=== PATIENT | male | born 1980 | race Caucasian/White ===

== ENCOUNTER 2018-08-05 19:59 | Inpatient (IN) | payer SELFPAY ==
[~2018-08-05] VITALS: Ht 177.8 cm; Wt 74.8 kg
[2018-08-05] MEDS ORDERED: PREDNISONE5 MG (20:07)
[2018-08-05] MEDS ORDERED: ZOFRAN4 MG (20:07)
[2018-08-05] MEDS ORDERED: TYLENOL W/CODEI1 TAB (20:08)
[2018-08-05 20:35] LABS: BASOPHILS 0 % (0-2); EOSINOPHILS 2.3 % (0-7); HEMATOCRIT 33.1 % (42.0-54.0); HEMOGLOBIN 11.1 g/dL (13.5-17.5); IMMATURE GRANULOCYTES 0.5 % (0-5); LYMPHOCYTES 24.5 % (15-50); MCH 26.4 pg (26.0-34.0); MCHC 33.5 g/dL (31.0-37.0); MCV 78.8 fL (80.0-100.0); MEAN PLATELET VOLUME 9.1 fL (7.4-10.4); MONOCYTES 6.8 % (2-11); NEUTROPHILS 65.9 % (40-80); PLATELET COUNT 270 10x3/uL (130-400); RDW 20.4 % (11.5-14.5); WBC 5.6 10x3/uL (4.8-10.8)
[2018-08-05 20:46] LABS: APPEARANCE CLEAR (CLEAR); BILIRUBIN NEGATIVE (NEGATIVE); COLOR YELLOW (YELLOW); GLUCOSE NEGATIVE (NEGATIVE); KETONE NEGATIVE (NEGATIVE); NITRITE NEGATIVE (NEGATIVE); PROTEIN NEGATIVE (NEGATIVE); SPECIFIC GRAVITY 1.015 (1.005-1.020); UROBILINOGEN NORMAL (NORMAL)
[2018-08-05 21:00] VITALS: BP 135/84
[2018-08-05 21:00] LABS: ALBUMIN 3.3 g/dL (3.4-5.0); ALKALINE PHOSPHATASE 63 U/L (46-116); ALT (SGPT) 63 U/L (10-68); BILIRUBIN - TOTAL 0.95 mg/dL (0.2-1.3); CALC OSMOLALITY 278 mosm/kg (275-300); CALCIUM 8.9 mg/dL (8.5-10.1); CARBON DIOXIDE 30.6 mmol/L (21.0-32.0); CHLORIDE - SERUM 102 mmol/L (98-107); CREATININE - SERUM 1.1 mg/dL (0.6-1.3); GLUCOSE 112 mg/dL (74-106); LIPASE 159 U/L (73-393); POTASSIUM - SERUM 4.2 mmol/L (3.5-5.1); PROTEIN - SERUM 6.7 g/dL (6.4-8.2); SODIUM 139 mmol/L (136-145); UREA NITROGEN 12 mg/dL (7-18); eGFR NON AFRICAN AMERICAN 79 mL/min (90-120)
[2018-08-05 23:00] VITALS: BP 147/73
[2018-08-06] VITALS (9 sets, daily range): BP systolic 117–139; BP diastolic 50–88; BMI 23.7
[2018-08-07 03:46] VITALS: BP 107/61
[2018-08-07 06:58] LABS: BASOPHILS 0 % (0-2); EOSINOPHILS 0.3 % (0-7); HEMATOCRIT 30.1 % (42.0-54.0); HEMOGLOBIN 9.9 g/dL (13.5-17.5); IMMATURE GRANULOCYTES 0.3 % (0-5); LYMPHOCYTES 10.7 % (15-50); MCH 25.8 pg (26.0-34.0); MCHC 32.9 g/dL (31.0-37.0); MCV 78.4 fL (80.0-100.0); MEAN PLATELET VOLUME 9.6 fL (7.4-10.4); MONOCYTES 2.8 % (2-11); NEUTROPHILS 85.9 % (40-80); PLATELET COUNT 224 10x3/uL (130-400); RBC 3.84 10x6/uL (4.20-6.10); RDW 20.2 % (11.5-14.5)
[2018-08-07 07:05] LABS: WBC 3.2 10x3/uL (4.8-10.8)
[2018-08-07 07:09] LABS: CALC OSMOLALITY 273 mosm/kg (275-300); CALCIUM 8.1 mg/dL (8.5-10.1); CARBON DIOXIDE 27.3 mmol/L (21.0-32.0); CHLORIDE - SERUM 102 mmol/L (98-107); CREATININE - SERUM 0.9 mg/dL (0.6-1.3); GLUCOSE 114 mg/dL (74-106); POTASSIUM - SERUM 3.7 mmol/L (3.5-5.1); SODIUM 137 mmol/L (136-145); UREA NITROGEN 10 mg/dL (7-18); eGFR NON AFRICAN AMERICAN > 90 mL/min (90-120)
[2018-08-07 08:48] VITALS: BP 100/67
[2018-08-07 10:57] VITALS: Ht 177.8 cm; Wt 74.8 kg
[2018-08-07 12:30] VITALS: BP 127/75
[2018-08-07 16:56] VITALS: BP 98/56
[2018-08-07 22:31] VITALS: BP 96/47
[2018-08-08 04:00] VITALS: BP 106/59
[2018-08-08 09:13] VITALS: BP 109/69
[2018-08-08 17:18] VITALS: BP 102/65
[2018-08-08 20:00] VITALS: BP 107/58
[2018-08-08 23:45] VITALS: BP 110/59
[2018-08-09 09:10] VITALS: BP 137/77
[2018-08-09 16:26] VITALS: BP 106/63
[2018-08-09 20:23] VITALS: BP 123/68
[2018-08-10 04:00] VITALS: BP 120/79
[2018-08-10 08:08] VITALS: BP 112/76
[2018-08-10] MEDS ORDERED: HYDROCODON-ACE1 EAC7 PO (11:07)
[2018-08-10] MEDS ORDERED: MEDROL DOSE PACK4 MG PO (11:07)
== END 2018-08-10 13:22 | disposition home or self-care (01) | DRG 389 ==
LOC: D.ER 19:59 → D.MS 08-06 00:11 → D.EDHOLD 08-06 00:11 → D.MS 08-06 00:56 → D.EDHOLD 08-06 00:57 → D.MS 08-06 10:16
PROVIDERS: Family Medicine
PROC: 0D9670Z Drainage of Stomach with Drainage Device, Via Natural or Artificial Opening (ICD-10-PCS; principal; 2018-08-06)
DX: K56.601 Complete intestinal obstruction, unspecified as to cause (principal); K50.90 Crohn's disease, unspecified, without complications

== ENCOUNTER 2018-11-24 02:07 | Emergency (ER) | payer BC ==
[~2018-11-24] VITALS: Ht 177.8 cm; Wt 65.9 kg
[~2018-11-24 02:07] MED LIST: HYDROCODON-ACE1 EAC7 PO; MEDROL DOSE PACK4 MG PO; PREDNISONE5 MG; TYLENOL W/CODEI1 TAB; ZOFRAN4 MG
[2018-11-24 02:36] LABS: BASOPHILS 0.2 % (0-2); EOSINOPHILS 0 % (0-7); HEMATOCRIT 38.9 % (42.0-54.0); HEMOGLOBIN 12.9 g/dL (13.5-17.5); IMMATURE GRANULOCYTES 3.6 % (0-5); MCH 28.3 pg (26.0-34.0); MCHC 33.2 g/dL (31.0-37.0); MCV 85.3 fL (80.0-100.0); MEAN PLATELET VOLUME 9.3 fL (7.4-10.4); MONOCYTES 7.8 % (2-11); NEUTROPHILS 83.4 % (40-80); RBC 4.56 10x6/uL (4.20-6.10); RDW 17.1 % (11.5-14.5); WBC 16.6 10x3/uL (4.8-10.8)
[2018-11-24 02:39] LABS: PLATELET COUNT 330 10x3/uL (130-400)
[2018-11-24 02:50] LABS: ALBUMIN 3.1 g/dL (3.4-5.0); ALKALINE PHOSPHATASE 86 U/L (46-116); ALT (SGPT) 48 U/L (10-68); BILIRUBIN - TOTAL 0.56 mg/dL (0.2-1.3); CALC OSMOLALITY 273 mosm/kg (275-300); CALCIUM 9.6 mg/dL (8.5-10.1); CHLORIDE - SERUM 94 mmol/L (98-107); CREATININE - SERUM 1.4 mg/dL (0.6-1.3); POTASSIUM - SERUM 4.3 mmol/L (3.5-5.1); PROTEIN - SERUM 7.7 g/dL (6.4-8.2); SODIUM 134 mmol/L (136-145); UREA NITROGEN 19 mg/dL (7-18); eGFR NON AFRICAN AMERICAN 60 mL/min (90-120)
[2018-11-24 02:51] LABS: GLUCOSE 163 mg/dL (74-106)
[2018-11-24 02:53] LABS: AMYLASE - SERUM 55 U/L (25-115); LIPASE 89 U/L (73-393)
[2018-11-24 02:58] LABS: TROPONIN-I < 0.017 ng/mL (0.000-0.060)
[2018-11-24 10:32] LABS: APPEARANCE CLEAR (CLEAR); BILIRUBIN NEGATIVE (NEGATIVE); COLOR YELLOW (YELLOW); GLUCOSE NEGATIVE (NEGATIVE); KETONE NEGATIVE (NEGATIVE); NITRITE NEGATIVE (NEGATIVE); PROTEIN NEGATIVE (NEGATIVE); SPECIFIC GRAVITY 1.025 (1.005-1.020); UROBILINOGEN NORMAL (NORMAL)
[2018-11-24 10:49] VITALS: Ht 177.8 cm; Wt 65.9 kg
[2018-11-24 11:08] VITALS: BP 148/94
== END 2018-11-24 11:08 | disposition other institution (70) ==
LOC: D.ER 02:07
PROVIDERS: Family Medicine
DX: K56.609 Unspecified intestinal obstruction, unspecified as to partial versus complete obstruction (principal); K50.90 Crohn's disease, unspecified, without complications

== ENCOUNTER 2018-12-21 16:58 | Emergency (ER) | payer BC ==
[~2018-12-21] VITALS: Ht 177.8 cm; Wt 68.0 kg
[2018-12-21 17:32] VITALS: Ht 177.8 cm; Wt 68.0 kg
[2018-12-21] MEDS ORDERED: TYLENOL W/CODEI1 TAB PO (20:26)
[2018-12-21] MEDS ORDERED: MEDROL DOSE PACK4 MG PO (20:26)
[2018-12-21] MEDS ORDERED: ROBAXIN500 MG PO (20:26)
[2018-12-21 21:09] VITALS: BP 139/89
== END 2018-12-21 21:09 | disposition home or self-care (01) ==
LOC: D.ER 16:58
DX: M54.12 Radiculopathy, cervical region (principal)

== ENCOUNTER → 2019-04-01 11:42 | Outpatient (CLI) | payer BC ==
[~2019-04-01 11:42] MED LIST changes: +ROBAXIN500 MG PO; +TYLENOL W/CODEI1 TAB PO
[2019-04-01 12:46] LABS: BASOPHILS 0.3 % (0-2); EOSINOPHILS 1.6 % (0-7); HEMATOCRIT 37.4 % (42.0-54.0); HEMOGLOBIN 12.4 g/dL (13.5-17.5); IMMATURE GRANULOCYTES 0.1 % (0-5); LYMPHOCYTES 17.9 % (15-50); MCH 23.6 pg (26.0-34.0); MCHC 33.2 g/dL (31.0-37.0); MCV 71.2 fL (80.0-100.0); MEAN PLATELET VOLUME 9.7 fL (7.4-10.4); MONOCYTES 8.1 % (2-11); PLATELET COUNT 257 10x3/uL (130-400); RBC 5.25 10x6/uL (4.20-6.10); RDW 16.2 % (11.5-14.5); WBC 7.7 10x3/uL (4.8-10.8)
[2019-04-01 13:49] LABS: ERYTHROCYTE SEDIMENTATION RATE 5 mm/hr (0-15)
== END | disposition home or self-care (01) ==
LOC: D.LAB 11:42
PROVIDERS: ATTEND Internal Medicine Gastroenterology
DX: K50.90 Crohn's disease, unspecified, without complications (principal)